=== PATIENT | female | born 1950 | race Caucasian/White ===

== ENCOUNTER 2022-02-11 11:21 | Outpatient (CLI) | payer MEDICARE, SELFPAY ==
--- NOTE | 2022-02-11 10:45 | CRLHL7_ITS ---
For Patients: As a result of the Century Cures Act, medical imaging exams and procedure reports are released immediately into your electronic medical record. You may view this report before your referring provider. If you have questions, please contact your health care provider. BILATERAL SCREENING MAMMOGRAM WITH COMPUTER-AIDED DETECTION AND TOMOSYNTHESIS TECHNIQUE: CC and MLO views were obtained. These mammographic images have been obtained using full-field digital technique. These mammographic images were interpreted with the benefit of computer-aided detection. Breast Tomosynthesis was used in this interpretation. COMPARISON FILM: 01/18/21, 01/16/20, 10/22/18. FINDINGS: The breasts are extremely dense, which lowers the sensitivity of mammography IMPRESSION: There is no radiographic evidence for malignancy. ASSESSMENT: BI-RADS Category 2: Benign RECOMMENDATION: Routine screening mammogram in 1 year. A lay language report of this examination will be provided to the patient. Zack Duron M.D. Diagnostic Radiologist [email or web address] BONNY/Dictated by: Zack Duron MD @ 02/11/2022 12:53:00 PM (Electronically Signed)
== END 2022-02-11 11:22 | disposition home or self-care (01) ==
LOC: MAMMO 11:22
PROVIDERS: PCP Internal Medicine; Visit Provider Obstetrics & Gynecology
DX: Z12.31 Encounter for screening mammogram for malignant neoplasm of breast (principal); R92.2 Inconclusive mammogram
CPT/HCPCS: 77063; 77067

== ENCOUNTER 2022-02-17 13:48 | Outpatient (CLI) | payer MEDICARE, SELFPAY ==
--- NOTE | 2022-02-17 14:00 | CRLHL7_ITS ---
For Patients: As a result of the Century Cures Act, medical imaging exams and procedure reports are released immediately into your electronic medical record. You may view this report before your referring provider. If you have questions, please contact your health care provider. DXA BONE MINERAL DENSITY STUDY Current height (in): 66.0 Weight (lb): 118.0 Menopause age: 57 Ethnicity: White. 1. Have you had a previous hip or vertebral fracture? No. 2. Have you had any fractures during your adult life which did not result from significant trauma (e.g., auto accident)? No. 3. Did either of your parents have a hip fracture? Yes. 4. Do you smoke? No. 5. Have you ever taken Glucocorticoids? No. 6. Do you have rheumatoid arthritis? No. 7. Do you have secondary osteoporosis? No. 8. Do you drink 3 or more alcoholic drinks per day? No. 9. Are you being treated for osteoporosis? No. 10. Have you ever taken any of the following medications: Actonel, Evista, Fosamax, Miacalcin, Reclast, Boniva, Forteo, HRT (i.e. estrogen/hormone therapy), Protelos, Prolia, Vitamin D, Calcium, other ??? please specify. ANSWER: Yes, Vitamin D, HRT, Calcium. 11. Do you have any of the following medical conditions: Anorexia or bulimia, asthma or emphysema, end stage renal disease, hyperparathyroidism, any seizure disorders, cancer, inflammatory bowel diseases, hysterectomy, other ??? please specify. ANSWER: Yes, Hysterectomy. 12. What was your maximum height (inches)? 67 13. Do you perform weight bearing exercise regularly? Yes. 14. Do you regularly consume dairy products? Yes. 15. Do you drink caffeinated beverages? Yes. 16. At what age did your period start? 15 17. Are you premenopausal? No. 18. How many full term pregnancies have you had? 1 19. Have you ever missed your period for more than 6 months in a row (not including or menopause)? No. TECHNIQUE: Bone mineral density study was performed using the [employer]. FINDINGS: The results of the study expressed as bone mineral density (BMD) are as follows: Lumbar spine L1 to L4: BMD: 1.026 g/cm2. T-score: -0.2. Z-score: 1.9. Neck Left: BMD: 0.708 g/cm2. T-score: -1.3. Z-score: 0.5. Right: BMD: 0.735 g/cm2. T-score: -1.0. Z-score: 0.8. Total Left: BMD: 0.822 g/cm2. T-score: -1.0. Z-score: 0.5. Right: BMD: 0.864 g/cm2. T-score: -0.6. Z-score: 0.8. IMPRESSION: Osteopenia. *Comparison exams done prior to 11/2019 were performed on different unit, [facility]. COMPARISON: Compared with scan of 09/08/2014, the bone mineral density has decreased by 9.1 percent at the spine and decreased by 7.5 percent at the hip. FRAX 10-year Fracture Risk Major Osteoporotic Fracture: 13 percent Hip Fracture: 2.2 percent Reported Risk Factors: [place] () Neck BMD=0.708, BMI=19.0, parental fracture. Zack Duron M.D. Diagnostic Radiologist [email or web address] DSM/rhina PT/Dictated by: Zack Duron MD @ 02/17/2022 2:44:00 PM (Electronically Signed)
== END 2022-02-17 13:49 | disposition home or self-care (01) ==
PROVIDERS: PCP Internal Medicine; Visit Provider Obstetrics & Gynecology
DX: Z79.51 Long term (current) use of inhaled steroids (principal); Z13.820 Encounter for screening for osteoporosis
CPT/HCPCS: 77080

== ENCOUNTER 2022-02-21 13:55 | Outpatient (CLI) | payer MEDICARE, SELFPAY ==
[2022-02-21 17:46] LABS: Cholesterol* 234 mg/dL (90-199)
[2022-02-21 17:47] LABS: HDL Cholesterol* 72 mg/dL (>=50); LDL Cholesterol Calculated 130 mg/dL (<100); Triglycerides* 161 mg/dL (40-149)
[2022-02-21 18:05] LABS: Vitamin D 25 Hydroxy* 79 ng/mL (30-80)
[2022-02-22 01:44] LABS: Glucose* 96 mg/dL (60-115)
== END 2022-02-21 13:56 | disposition home or self-care (01) ==
PROVIDERS: PCP Internal Medicine; Visit Provider Internal Medicine
DX: Z01.419 Encounter for gynecological examination (general) (routine) without abnormal findings (principal); M85.80 Other specified disorders of bone density and structure, unspecified site; G47.00 Insomnia, unspecified; Z13.1 Encounter for screening for diabetes mellitus; Z13.6 Encounter for screening for cardiovascular disorders
CPT/HCPCS: 80061; 82306; 82947

== ENCOUNTER 2023-03-14 12:50 | Outpatient (CLI) | payer MEDICARE, SELFPAY ==
--- NOTE | 2023-03-14 13:00 | CRLHL7_ITS ---
For Patients: As a result of the Century Cures Act, medical imaging exams and procedure reports are released immediately into your electronic medical record. You may view this report before your referring provider. If you have questions, please contact your health care provider. BILATERAL DIGITAL SCREENING MAMMOGRAM WITH TOMOSYNTHESIS AND COMPUTER-AIDED DETECTION CLINICAL HISTORY: Routine screening exam. COMPARISON: 02/11/2022, 01/18/2021. TECHNIQUE: Digital mammogram in CC and MLO projections including computer-aided detection (CAD). Tomosynthesis utilized. BREAST COMPOSITION: The breasts are heterogeneously dense, which may obscure small masses. FINDINGS: RIGHT Breast: No suspicious findings. LEFT Breast: Circumscribed nodular density retroareolar plane measuring 2.1 cm, 4 cm from the nipple. IMPRESSION: LEFT breast asymmetry/mass. RECOMMENDATIONS: Additional mammographic views of the LEFT breast including 3D spot compression CC/MLO. LEFT breast ultrasound may also be required. BI-RADS Category 0: Incomplete: Need Additional Imaging Evaluation and/or Prior Mammograms for Comparison The [facility] will contact the patient for follow-up. A lay language report of this examination will be provided to the patient. Dictated by Zack Duron MD @ 03/16/2023 12:24:57 PM piedadj/Dictated by: Zack Duron MD @ 03/16/2023 12:25:00 PM (Electronically Signed)
== END 2023-03-14 12:51 | disposition home or self-care (01) ==
LOC: MAMMO 12:50
PROVIDERS: PCP Internal Medicine; Visit Provider Internal Medicine
DX: Z12.31 Encounter for screening mammogram for malignant neoplasm of breast (principal); N63.20 Unspecified lump in the left breast, unspecified quadrant
CPT/HCPCS: 77063; 77067

== ENCOUNTER 2023-03-16 08:29 | Outpatient (CLI) | payer MEDICARE, SELFPAY ==
--- NOTE | 2023-03-16 09:31 | W.ANESCHARGE ---
Anesthesia Charges Start Date/Time Anesthesia Start Date: 03/16/23 Stop Date/Time Anesthesia Stop Date: 03/16/23 Summary Extremes of Age - Over 70 or under 1: MDA
--- NOTE | 2023-03-16 10:07 | W.ANESCHARGE ---
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
== END 2023-03-16 08:30 | disposition home or self-care (01) ==
LOC: OP CLINIC 08:29
PROVIDERS: PCP Internal Medicine; Visit Provider Surgery
DX: Z12.11 Encounter for screening for malignant neoplasm of colon (principal); K63.5 Polyp of colon; K64.4 Residual hemorrhoidal skin tags; K57.30 Diverticulosis of large intestine without perforation or abscess without bleeding; Z86.010 Personal history of colon polyps
CPT/HCPCS: 00811; 45380; 45385; 88305; 99100; J2704

== ENCOUNTER 2023-03-22 08:34 | Outpatient (CLI) | payer MEDICARE, SELFPAY ==
--- NOTE | 2023-03-22 08:45 | CRLHL7_ITS ---
For Patients: As a result of the Cures Act, medical imaging exams and procedure reports are released immediately into your electronic medical record. You may view this report before your referring provider. If you have questions, please contact your health care provider. DIGITAL DIAGNOSTIC LEFT MAMMOGRAM USING TOMOSYNTHESIS AND COMPUTER-AIDED DETECTION LEFT BREAST ULTRASOUND INDICATION: Asymptomatic female. Follow-up a LEFT breast density identified on recent mammogram 03/14/2023. MAMMOGRAM: TECHNIQUE: Spot compression view of the LEFT breast in the CC and MLO projection. Digital breast tomosynthesis utilized. FINDINGS: Breast Composition: The breast is heterogeneously dense, which may obscure small masses. Benign calcifications in the LEFT breast. Persistent 2.2 cm oval-shaped mass in the central LEFT breast at approximately the 12 o`clock position middle depth. Ultrasound is recommended for further evaluation and will be performed subsequently. Please see ultrasound report from the same date. ULTRASOUND: TECHNIQUE: Directed LEFT breast ultrasound with this radiologist present. FINDINGS: Within the LEFT breast at the 12 o`clock position 3 cm from the nipple is a well-circumscribed oval-shaped cyst measuring 2.2 x 1.0 x 2.1 cm. This corresponds to the lesion on mammography. This is a simple-appearing cyst. No further workup or follow-up is recommended. These findings were discussed briefly with the patient. Annual mammography is recommended. BI-RADS Category 2: Benign A lay language report of this examination will be provided to the patient. Dictated by: Jere White MD @03/22/2023 10:05:40 AM jj/Dictated by: Jere White MD @ 03/22/2023 10:05:00 AM (Electronically Signed)
--- NOTE | 2023-03-22 09:15 | CRLHL7_ITS ---
For Patients: As a result of the Cures Act, medical imaging exams and procedure reports are released immediately into your electronic medical record. You may view this report before your referring provider. If you have questions, please contact your health care provider. PLEASE SEE DIGITAL DIAGNOSTIC LEFT MAMMOGRAM PERFORMED SAME DAY CRL:dean moran/Dictated by: Jere White MD @ 03/22/2023 10:04:00 AM (Electronically Signed)
== END 2023-03-22 08:35 | disposition home or self-care (01) ==
LOC: MAMMO 08:34
PROVIDERS: PCP Internal Medicine; Visit Provider Internal Medicine
DX: N63.20 Unspecified lump in the left breast, unspecified quadrant (principal); R92.8 Other abnormal and inconclusive findings on diagnostic imaging of breast
CPT/HCPCS: 76642; 77065; G0279

== ENCOUNTER 2023-11-25 14:40 | Emergency (ER) | payer MEDICARE, SELFPAY ==
[2023-11-25 14:54] VITALS: BP 118/82; PULSE 90; RESP 16; TEMP 36; O2SAT 96; BMI 20.2
--- NOTE | 2023-11-25 15:19 | CRLHL7_ITS ---
For Patients: As a result of the Century Cures Act, medical imaging exams and procedure reports are released immediately into your electronic medical record. You may view this report before your referring provider. If you have questions, please contact your health care provider. Indication: Abdominal pain Technique: CT abdomen/pelvis with IV contrast, 62 mL Isovue 370 Comparison: None Findings: Lower thorax: Solid 2 millimeter subpleural pulmonary nodule in the anterolateral aspect of the left lower lobe (series number 2, image 17). Abdomen/pelvis: A few subcentimeter well-circumscribed hypodensities in the liver, likely benign cysts/hemangioma. No suspicious focal hepatic lesions. The gallbladder and biliary system are unremarkable. The spleen, pancreas, and bilateral adrenal glands are unremarkable. The kidneys are normal in size and perfused in a normal fashion. No suspicious renal masses. Simple appearing renal cyst at the upper pole of the right kidney measuring 1.0 centimeters. No renal calculi or hydroureteronephrosis. The bladder is unremarkable in appearance. No suspicious pelvic/adnexal lesions. A pessary is present. No evidence of bowel obstruction. Moderate volume stool burden throughout the colon. Redundant sigmoid colon with short segment circumferential wall thickening and a few inflamed diverticula with minimal pericolonic inflammatory changes and trace free fluid in the right lower quadrant and abdomen. No abscess. No free air. No pathologically enlarged lymph nodes throughout the abdomen or pelvis. The vasculature is unremarkable. Soft tissue/musculoskeletal: Small fat containing umbilical hernia. The osseous structures are unremarkable for the patient`s age. Impression: 1. Acute, uncomplicated mild diverticulitis of the redundant sigmoid colon. 2. Small volume free fluid, likely secondary to inflammatory changes of the colon. No abscess. No free air. 3. Solid 2 millimeter subpleural pulmonary nodule in the anterolateral aspect of the left lower lobe, likely benign. If patient is at high risk for developing lung malignancy recommend repeat CT chest in 12 months; otherwise, no routine follow-up imaging is needed. Please note that all CT scans at this facility use dose modulation, iterative reconstruction, and/or weight-based dosing when appropriate to reduce radiation dose to as low as reasonably achievable. Dictated by Didier Stanton MD @ 11/25/2023 5:01:50 PM (Electronically Signed)
--- NOTE | 2023-11-25 15:22 | ED_ITS ---
HPI - General Adult General Chief complaint: Abdominal Pain Stated complaint: Stomach Issue Time Seen by Provider: 11/25/23 14:41 History of Present Illness HPI narrative: Patient is a pleasant 73-year-old female presents with her with intermittent crampy abdominal pain. She has had a history of chronic constipation this is in her chart, she is generally quite healthy. Does take estrogen. She has had some mild nausea no real fever, this has been intermittent over the last couple of weeks. She does have an appointment see Dr. Garcia in next week. She has had mildly loose stools but she did take MiraLax yesterday x1. She has been moving her bowels regularly, no urinary symptoms, no hematuria, no vomiting. No weight loss, fevers, chills, night sweats. Patient has had diverticulosis noted on colonoscopy. Related Data Home Medications ?Medication ?Instructions ?Recorded ?Confirmed biotin 1 mg capsule 5 mg PO QDAY 02/11/22 03/21/23 cholecalciferol (vitamin D3) 125 5,000 unit PO DAILY 02/11/22 03/21/23 mcg (5,000 unit) tablet magnesium 250 mg tablet 250 mg PO QDAY 02/11/22 03/21/23 multivitamin with minerals-folic 1 tab PO DAILY 02/11/22 03/21/23 acid 0.4 mg tablet chlorophyll copper complex 100 mg 100 mg PO QDAY 05/24/22 03/21/23 tablet zolpidem 5 mg tablet (Ambien) 2.5 mg PO ONCE PRN 03/13/23 03/21/23 Previous Rx's ?Medication ?Instructions ?Recorded fluticasone propionate 50 1 spray intranasal BID #16 grams 02/11/22 mcg/actuation nasal spray,suspension estradiol 0.05 mg/24 hr semiweekly 1 patch transdermal 2XW 1 month #8 03/21/23 transdermal patch ea estradiol 10 mcg vaginal tablet 10 mcg vaginal .2X/Week #30 tabs 03/21/23 Allergies Allergy/AdvReac Type Severity Reaction Status Date / Time Sulfa drugs Allergy Intermediate Hives Uncoded 03/21/23 10:20 Cat hair extract Allergy Mild Unknown Uncoded 03/21/23 10:20 Review of Systems Status of ROS: Reports: 6 or more systems reviewed and unremarkable except as noted in History and below Narrative: Patient states this is the diffuse lower abdominal pain and not really localize right or left lower quadrant pain. She has not had any abdominal surgery. PFSH PFS Surgical History History of tonsillectomy (04/13/09) ?Z90.89 - Acquired absence of other organs (ICD-10) History of hysterectomy (04/13/09) ?Z90.710 - Acquired absence of both cervix and uterus (ICD-10) History of colonoscopy (2007) ?Z98.890 - Other specified postprocedural states (ICD-10) Family History Mother Alzheimers disease High blood pressure Sister Colonic polyp Osteoporosis Father No problems noted. Social History Narrative: Non-smoker. She is retired. She has some college education. She exercises regularly with weight lifting and treadmill. She is 22 yrs ago. She drinks alcohol. NO recreational drug use. Smoking Status: Never smoker Little interest or pleasure in doing things: not at all Feeling down, depressed, or hopeless: not at all Exam Narrative: Exam Narrative: Objective: Patient's vital signs are within normal limits Alert orient x3 no distress Pulses regular Abdomen soft nondistended, bowel sounds normoactive, no palpable masses or rebound. Extremities are no edema Neurologic nonfocal in upper lower extremities. Patient is ambulatory. Const: Vital Signs, click to edit/add: Vital Signs - 24 hr 11/25/23 14:54 Temperature 96.8 F L Pulse Rate [Pulse Oximeter] 90 Respiratory Rate 16 Blood Pressure [Ri ght Upper Arm] 118/82 Pulse Oximetry 96 Oxygen Delivery Me thod Room Air Course Vital Signs Vital signs: Initial Vital Signs Temperature 96.8 F L 11/25/23 14:54 Temperature Source Temporal Artery Scan 11/25/23 14:54 Pulse Rate 90 11/25/23 14:54 Respiratory Rate 16 11/25/23 14:54 Blood Pressure 118/82 11/25/23 14:54 Blood Pressure Mean 94 11/25/23 14:54 Blood Pressure Position Sitting 11/25/23 14:54 Pulse Oximetry 96 11/25/23 14:54 Oxygen Delivery Method Room Air 11/25/23 14:54 Vital Signs Temperature 96.8 F L 11/25/23 14:54 Pulse Rate 90 11/25/23 14:54 Respiratory Rate 16 11/25/23 14:54 Blood Pressure 118/82 11/25/23 14:54 Pulse Oximetry 96 11/25/23 14:54 Oxygen Delivery Method Room Air 11/25/23 14:54 Temperature 96.8 F L 11/25/23 14:54 Pulse Rate 90 11/25/23 14:54 Respiratory Rate 16 11/25/23 14:54 Blood Pressure 118/82 11/25/23 14:54 Pulse Oximetry 96 11/25/23 14:54 Oxygen Delivery Method Room Air 11/25/23 14:54 Medical Decision Making MDM Narrative Medical decision making narrative: [age] white female with intermittent crampy abdominal pain history of chronic constipation, but also with a history of diverticulosis, at this point I think rule out diverticulitis would be appropriate as well as any form of obstruction, constipation, intra-abdominal pathology. Patient will get lab studies as well, IV fluid, disposition pending findings above. Addendum 5:06 p.m. patient has acute uncomplicated mild diverticulitis in an area of redundant sigmoid colon. I think this is responsible her symptoms. She does have a normal white count. I think I would cover her though given she has had intermittent symptoms over a couple week. . And I think we can do Augmentin 875 b.i.d. times a week. 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 May use some Tylenol Advil as well. Return if problems or concerns. Addendum patient reports she has trouble with Augmentin, so should be given Cipro and Flagyl. Lab Data Labs: Lab Results 11/25/23 Range/Units 15:50 WBC 8.42 (4.50-11.00) K/uL RBC 5.20 (4.00-5.20) m/uL Hgb 15.1 (12.0-16.0) gm/dL Hct 45.8 (33.0-51.0) % MCV 88 (80-100) fL MCH 29 (26-34) pg MCHC 33 (32-36) gm/dL RDW Coeff of Shannan 12.6 (11.5-15.5) % Plt Count 258 (140-440) K/uL Neut % (Auto) 64.8 (42.0-72.0) % Lymph % (Auto) 25.4 (20-44) % [place] % (Auto) 6.5 (0.0-11.0) % Eos % (Auto) 2.3 (0.0-7.0) % Baso % (Auto) 0.2 (0.0-3.0) % Neut # (Auto) 5.45 (1.7-7.0) K/uL Lymph # (Auto) 2.14 (0.90-2.90) K/uL [place] # (Auto) 0.50 (0.00-0.90) K/UL Eos # (Auto) 0.19 (0.00-0.50) K/uL Baso # (Auto) 0.02 (0.00-0.30) K/uL Abs Immat Gran (auto) 0.07 (0.00-0.30) K/uL Imm/Tot Granulo (auto) 0.8 % Sodium 138 (135-149) mmol/L Potassium 3.4 L (3.6-5.1) mmol/L Chloride 101 (96-114) mmol/L Carbon Dioxide 26 (20-32) mmol/L Anion Gap 11 (7-15) mEq/L BUN 11 (7-30) mg/dL Creatinine 0.7 (0.5-1.5) mg/dL Estimated Creat Clear 46.19 Estimated GFR 92 ml/min Glucose 101 (60-115) mg/dL Calcium 9.5 (8.4-10.6) mg/dL Total Bilirubin 0.7 (0.1-1.5) mg/dL Direct Bilirubin 0.3 (0.0-0.5) mg/dL AST 33 (12-35) U/L ALT 15 (4-35) U/L Alkaline Phosphatase 81 (40-150) U/L C-Reactive Protein 1.0 (0.5-1.0) mg/dL Total Protein 8.4 H (6.0-8.3) g/dL Albumin 5.0 (3.3-5.0) g/dL Amylase 67 (18-89) U/L Discharge Plan Discharge Clinical Impression: Abdominal pain, Diverticulitis Patient Disposition: Home w/ Parent or Adult Condition: Stable Additional Instructions: Rest, fluids, recommend a follow-up CT scan of your chest for a left lower lobe nodule in about 1 year. You may advance her diet as tolerated, will give you antibiotics to use for your infection. Follow-up as needed. Activity Level: Light activity Discharge Diet: Full Liquid Prescriptions: No Action cholecalciferol (vitamin D3) 125 mcg (5,000 unit) tablet 5,000 unit PO DAILY multivit with min-folic acid 0.4 mg tablet 1 tab PO DAILY magnesium 250 mg tablet 250 mg PO QDAY biotin 1 mg capsule 5 mg PO QDAY fluticasone propionate 50 mcg/actuation spray,suspension 1 spray intranasal BID Qty: 16 5RF chlorophyll copper complex 100 mg tablet 100 mg PO QDAY estradiol 0.05 mg/24 hr patch semiweekly 1 patch transdermal 2XW 30 Days Qty: 8 12RF Rx Instructions: apply 1 patch for 3 days alternating with 1 patch for 4 days each week for 3 wks per 4-wk cycle estradiol 10 mcg tablet 10 mcg vaginal .2X/Week Qty: 30 4RF Rx Instructions: Place 1 tablet vaginally 2 times per week. zolpidem [Ambien] 5 mg tablet 2.5 mg PO ONCE PRN Rx Instructions: use sparingly for insomnia Follow Up/Referrals: Kylie Garcia MD [Primary Care Provider] - Stand Alone Forms: [facility] Info Instructions
[2023-11-25 15:58] LABS: Basophils Absolute Auto 0.02 K/uL (0.00-0.30); Basophils Percent Auto 0.2 % (0.0-3.0); Eosinophils Absolute Auto 0.19 K/uL (0.00-0.50); Eosinophils Percent Auto 2.3 % (0.0-7.0); Hematocrit 45.8 % (33.0-51.0); Hemoglobin* 15.1 gm/dL (12.0-16.0); Immature Granulocytes Abs Auto 0.07 K/uL (0.00-0.30); Immature Granulocytes Pct Auto 0.8 %; Lymphocytes Absolute Auto 2.14 K/uL (0.90-2.90); Lymphocytes Percent Auto 25.4 % (20-44); Mean Corpuscular HGB Conc 33 gm/dL (32-36); Mean Corpuscular Hemoglobin 29 pg (26-34); Mean Corpuscular Volume 88 fL (80-100); Monocytes Percent Auto 6.5 % (0.0-11.0); Neutrophils Absolute Auto 5.45 K/uL (1.7-7.0); Neutrophils Percent Auto 64.8 % (42.0-72.0); Platelet Count* 258 K/uL (140-440); RDW Coefficient of Variation % 12.6 % (11.5-15.5); White Blood Count* 8.42 K/uL (4.50-11.00)
[2023-11-25 16:22] LABS: Chloride* 101 mmol/L (96-114); Sodium* 138 mmol/L (135-149)
[2023-11-25 16:23] LABS: Potassium* 3.4 mmol/L (3.6-5.1)
[2023-11-25 16:25] LABS: Amylase* 67 U/L (18-89); Creatinine* 0.7 mg/dL (0.5-1.5); Est. Creatinine Clearance* 46.19; Estimated Glomerular Filt Rate 92 ml/min; Slide Review Reflex No
[2023-11-25 16:26] LABS: Anion Gap 11 mEq/L (7-15); Blood Urea Nitrogen* 11 mg/dL (7-30); Calcium* 9.5 mg/dL (8.4-10.6); Carbon Dioxide* 26 mmol/L (20-32); Glucose* 101 mg/dL (60-115)
[2023-11-25 16:32] LABS: Alanine Aminotransferase* 15 U/L (4-35); Aspartate Amino Transferase* 33 U/L (12-35); Bilirubin Total* 0.7 mg/dL (0.1-1.5); Total Protein* 8.4 g/dL (6.0-8.3)
[2023-11-25 16:33] LABS: Alkaline Phosphatase* 81 U/L (40-150); Bilirubin Direct* 0.3 mg/dL (0.0-0.5)
== END 2023-11-25 17:25 | disposition home or self-care (01) ==
PROVIDERS: Emergency Provider Family Medicine; PCP Internal Medicine
DX: R10.9 Unspecified abdominal pain (principal)
CPT/HCPCS: 36415; 74177; 80048; 80076; 82150; 85025; 86140; 99284; 99285; Q9967

== ENCOUNTER 2024-03-18 13:11 | Outpatient (CLI) | payer MEDICARE, SELFPAY ==
--- NOTE | 2024-03-18 13:20 | CRLHL7_ITS ---
For Patients: As a result of the Century Cures Act, medical imaging exams and procedure reports are released immediately into your electronic medical record. You may view this report before your referring provider. If you have questions, please contact your health care provider. BILATERAL SCREENING MAMMOGRAM WITH COMPUTER-AIDED DETECTION AND TOMOSYNTHESIS TECHNIQUE: CC and MLO views were obtained. These mammographic images have been obtained using full-field digital technique. These mammographic images were interpreted with the benefit of computer-aided detection. Breast Tomosynthesis was used in this interpretation. COMPARISON FILM: 03/14/23, 02/11/22, 01/18/21. FINDINGS: The breasts are heterogeneously dense, which may obscure small masses IMPRESSION: There is no radiographic evidence for malignancy. ASSESSMENT: BI-RADS Category 2: Benign RECOMMENDATION: Routine screening mammogram in 1 year. A lay language report of this examination will be provided to the patient. Zack Duron M.D. Diagnostic Radiologist [email or web address] OLGA LIDIA/dean Transcribed: 1:59 p.[email or web address] moran/Dictated by: Zack Duron MD @ 03/25/2024 9:51:00 AM (Electronically Signed)
== END 2024-03-18 13:12 | disposition home or self-care (01) ==
PROVIDERS: PCP Internal Medicine; Visit Provider Obstetrics & Gynecology
DX: Z12.31 Encounter for screening mammogram for malignant neoplasm of breast (principal)
CPT/HCPCS: 77063; 77067

== ENCOUNTER 2024-05-06 10:13 | Outpatient (CLI) | payer MEDICARE, SELFPAY | END 2024-05-06 10:14 | disposition home or self-care (01) | LOC: NFLDREF 05-09 05:05 | PROVIDERS: PCP Internal Medicine; Referring Provider Internal Medicine; Visit Provider Internal Medicine | DX: E78.5 Hyperlipidemia, unspecified (principal); M85.80 Other specified disorders of bone density and structure, unspecified site | CPT/HCPCS: 80053; 80061; 82306 ==

== ENCOUNTER 2024-09-09 13:52 | Outpatient (CLI) | payer MEDICARE, SELFPAY ==
[2024-09-09 14:21] LABS: Appearance Urine Clear (Clear); Bilirubin Urine Negative (Negative); Blood Urine Negative (Negative); Color Urine Yellow (Yellow); Glucose Urine Negative (Negative); Ketones Urine Negative (Negative); Leukocyte Esterase Urine Negative (Negative); Nitrite Urine Negative (Negative); Protein Urine Negative (Negative); Specific Gravity Urine <= 1.005 (1.000-1.030); Urobilinogen Urine 0.2 (0.2-1.0)
[2024-09-09 14:28] LABS: RBC Urine 0-2 (0-2); WBC Urine 0-2 (0-5)
== END 2024-09-09 13:53 | disposition home or self-care (01) ==
PROVIDERS: PCP Internal Medicine; Visit Provider Obstetrics & Gynecology
DX: N39.3 Stress incontinence (female) (male) (principal)
CPT/HCPCS: 81001; 87086

== ENCOUNTER 2025-05-08 09:53 | Outpatient (CLI) | payer MEDICARE, SELFPAY ==
--- NOTE | 2025-05-08 10:15 | CRLHL7_ITS ---
For Patients: As a result of the Century Cures Act, medical imaging exams and procedure reports are released immediately into your electronic medical record. You may view this report before your referring provider. If you have questions, please contact your health care provider. INDICATION: BILATERAL SCREENING MAMMOGRAM, ASYMPTOMATIC 74 Y/O FEMALE COMPARISON: 03/18/2024, 03/22/2023, 03/14/2023 TECHNIQUE: Digital mammogram in CC and MLO projections including computer-aided detection (CAD) and tomosynthesis. BREAST COMPOSITION: The breasts are heterogeneously dense, which may obscure small masses. FINDINGS: No suspicious findings. ASSESSMENT: BI-RADS 2 Benign RECOMMENDATION: Annual screening mammogram. A lay language report of this examination will be provided to the patient. Dictated by: Zack Duron MD @ 05/08/2025 10:43:03 (Electronically Signed)
== END 2025-05-08 09:54 | disposition home or self-care (01) ==
LOC: MAMMO 09:53
PROVIDERS: PCP Internal Medicine; Visit Provider Internal Medicine
DX: Z12.31 Encounter for screening mammogram for malignant neoplasm of breast (principal); R92.333 Mammographic heterogeneous density, bilateral breasts
CPT/HCPCS: 77063; 77067